=== PATIENT | female | born 1940 | race Caucasian/White ===

== ENCOUNTER → 2017-10-11 | Outpatient (CLI) | payer MEDICARE, OTHER ==
[~2017-10-11] MED LIST: ACETAMINOPHEN-H1 TA2 PO; ADVAIR 250/5028 PUFF IN; CEFDINIR300 M1 PO; DICLOFENAC POTA50 MG PO; LEVAQUIN500 MG PO; METOPROLOL SUCC50 M4 PO; OMEPRAZOLE20 MG PO; SUMATRIPTA6 MG/0.52 SQ; TESSALON PERLE100 M1 PO; TOPIRAMATE50 MG PO; ZOFRAN4 MG PO
--- NOTE | 2017-10-11 15:07 | RADIOLOGY REPORT PS360 ---
CHEST(2 VIEWS-NOT PORTABLE) HISTORY: CHRONIC OBSTRUCTIVE ASTHMA ORDERING PHYSICIAN: MAGGIE COVINGTON MD PATIENT AGE: 77 years COMPARISON: 01/01/2017 FINDINGS: The cardiomediastinal silhouette and pulmonary vascularity are within normal limits. There is hyperinflation with attenuation of the peripheral pulmonary vessels consistent with COPD.. There are chronic changes in the left lower lobe. There is increased density in the right apex could be related to underlying pneumonia or even developing mass. Follow-up recommended. If this persists then chest CT may be needed for further evaluation. No acute bony anomalies. IMPRESSION: COPD with slight increased density in the right upper lobe which may be related to developing mass or pneumonia. Consider chest CT for further evaluation.
== END ==
LOC: RAD 13:57
DX: J44.1 Chronic obstructive pulmonary disease with (acute) exacerbation (principal); B34.9 Viral infection, unspecified

== ENCOUNTER → 2017-10-14 | Outpatient (CLI) | payer MEDICARE, OTHER ==
--- NOTE | 2017-10-14 13:50 | RADIOLOGY REPORT PS360 ---
CT CHEST W/O CONTRAST Ordering Physician: MAGGIE COVINGTON MD Patient Age: 77 years: Female HISTORY: PNEUMONIAcough TECHNIQUE: COMPARISON :CT chest 10/15/2016 FINDINGS No acute findings. No focal pneumonia evident. hyperexpansion and emphysematous changes again seen bilateral . Apical pleural/and parenchymal scarring again seen similar to previous study. Stable & most evident at the posterior aspect right apex. Additional linear pleural parenchymal scarring scattered throughout posterior aspect R UL lobe-appear stable.. Minimal residual scarring also at posterior reflection of the major fissure on right. Unchanged,.Seen on sagittal image. 33 Continuing inferiorly there is a small density periphery right lower lobe. Appears stable/unchanged. Favor more likely due to scarring as well. Measures 7 mm. AP on sagittal image 23 & axial image 55. There is mild linear scarring anteriorly at RML and lingula similar to previous study. Stable . No mediastinal adenopathy or mass. Would note the blood within the great vessels seem slightly low-density a new may want to check, exclude anemia with CBC. No significant hilar or mediastinal adenopathy heart is normal in size. . Airways appear similar, upper normal thickness airways at the infrahilar region. However area but also overall satisfactory with no endobronchial findings Upper abdomen. Patient quite thin posterior lack of fat however I see no significant findings otherwise. The T-spine with degenerative changes. But no acute fracture or findings IMPRESSION: Prominent COPD features. Hyperexpansion &. Emphysematous changes Stable chronic changes as detailed in text with no acute or new findings
== END ==
LOC: RAD 11:47
DX: J18.9 Pneumonia, unspecified organism (principal)